=== PATIENT | female | born 1985 | race Caucasian/White ===

== ENCOUNTER → 2016-05-02 | Outpatient (CLI) | payer BC ==
[2016-05-02 13:38] LABS: ALBUMIN 3.9 GM/DL (3.2-5.2); ALBUMIN/GLOBULIN RATIO 1.22 (1.00-1.93); ALKALINE PHOSPHATASE 90 U/L (45-117); ALT/SGPT 59 U/L (12-78); ANION GAP 8 MEQ/L (8-16); AST/SGOT 20 U/L (15-37); BILIRUBIN,TOTAL 0.3 MG/DL (0.2-1.0); BLOOD UREA NITROGEN 8 MG/DL (7-18); CARBON DIOXIDE LEVEL 28 MEQ/L (21-32); CHLORIDE LEVEL 105 MEQ/L (98-107); CREATININE FOR GFR 0.61 MG/DL (0.55-1.02); GLOMERULAR FILTRATION RATE > 60.0 (>60); GLUCOSE, FASTING 120 MG/DL (70-105); POTASSIUM SERUM 4.6 MEQ/L (3.5-5.1); SODIUM LEVEL 141 MEQ/L (136-145); TOTAL PROTEIN 7.1 GM/DL (6.4-8.2)
== END ==
LOC: M SMT 08:18
PROVIDERS: ATTEND Family Medicine
DX: E11.9 Type 2 diabetes mellitus without complications (principal)

== ENCOUNTER → 2016-06-05 | Outpatient (CLI) | payer BC | LOC: M LAB 11:48 | PROVIDERS: ATTEND Advanced Practice Midwife | DX: O26.851 Spotting complicating pregnancy, first trimester (principal); Z3A.00 Weeks of gestation of pregnancy not specified ==

== ENCOUNTER → 2016-06-08 | Outpatient (CLI) | payer BC ==
[2016-06-08 14:47] LABS: BASO % 0.3 % (0.0-1.0); EOS # 0.1 K/mm3 (0.0-0.50); EOS % 0.8 % (0.0-3.0); LARGE UNSTAINED CELL # 0.1 K/mm3 (0.0-0.4); LARGE UNSTAINED CELL % 1.5 % (0.0-4.0); LYMPH % 31.9 % (24.0-44.0); MEAN CORPUSCULAR HEMOGLOBIN 28.3 pg (27.0-33.0); MEAN CORPUSCULAR HGB CONC 33.7 g/dl (32.0-36.5); MONO # 0.4 K/mm3 (0.0-0.8); MONO % 4.6 % (0.0-5.0); NEUTROPHILS # 5.5 K/mm3 (1.8-7.7); NEUTROPHILS % 60.9 % (36.0-66.0); PLATELET COUNT, AUTOMATED 265 k/mm3 (150-450); RED CELL DISTRIBUTION WIDTH 12.8 % (11.5-14.5)
[2016-06-08 15:00] LABS: HCG, SERUM QUANTITATIVE < 1.0 MIU/ML
[2016-06-09 10:16] LABS: HBsAg Prenatal NEGATIVE (NEGATIVE)
== END ==
LOC: M LAB 13:42
PROVIDERS: ATTEND Advanced Practice Midwife
DX: O26.851 Spotting complicating pregnancy, first trimester (principal); Z3A.00 Weeks of gestation of pregnancy not specified

== ENCOUNTER → 2016-06-20 | Outpatient (CLI) | payer BC ==
[2016-06-20 09:55] LABS: FREE T4 1.01 NG/DL (0.76-1.46)
== END ==
LOC: M LAB 08:48
PROVIDERS: ATTEND Family Medicine
DX: E55.9 Vitamin D deficiency, unspecified (principal); E66.09 Other obesity due to excess calories

== ENCOUNTER → 2016-09-12 | Outpatient (REF) | payer BC ==
[2016-09-12 13:51] LABS: ALBUMIN 3.9 GM/DL (3.2-5.2); ALKALINE PHOSPHATASE 73 U/L (45-117); ALT/SGPT 39 U/L (12-78); ANION GAP 7 MEQ/L (8-16); AST/SGOT 15 U/L (15-37); BILIRUBIN,TOTAL 0.2 MG/DL (0.2-1.0); BLOOD UREA NITROGEN 10 MG/DL (7-18); CALCIUM LEVEL 8.8 MG/DL (8.5-10.1); CARBON DIOXIDE LEVEL 26 MEQ/L (21-32); CHLORIDE LEVEL 105 MEQ/L (98-107); CREATININE FOR GFR 0.63 MG/DL (0.55-1.02); GLOMERULAR FILTRATION RATE > 60.0 (>60); GLUCOSE, FASTING 95 MG/DL (70-105); POTASSIUM SERUM 4.3 MEQ/L (3.5-5.1); SODIUM LEVEL 138 MEQ/L (136-145); TOTAL PROTEIN 6.9 GM/DL (6.4-8.2)
== END ==
LOC: M LAB REF 12:19
PROVIDERS: ATTEND Family Medicine
DX: M54.6 Pain in thoracic spine (principal); E11.9 Type 2 diabetes mellitus without complications; E55.9 Vitamin D deficiency, unspecified

== ENCOUNTER → 2016-11-17 | Outpatient (CLI) | payer BC ==
[2016-11-17 15:40] LABS: MAGNESIUM LEVEL 2.1 MG/DL (1.8-2.4)
== END ==
LOC: M SMT 10:26
PROVIDERS: ATTEND Family Medicine
DX: E55.9 Vitamin D deficiency, unspecified (principal); M79.1 Myalgia

== ENCOUNTER → 2016-11-17 | Outpatient (CLI) | payer BC ==
[2016-11-17 15:45] LABS: FOLLICLE STIMULATING HORMONE 2.9 mIU/mL; LUTEINIZING HORMONE 5.6 mIU/mL; PROGESTERONE 11.5 NG/ML
== END ==
LOC: M SMT 09:57
PROVIDERS: ATTEND Specialist
DX: N93.8 Other specified abnormal uterine and vaginal bleeding (principal)

== ENCOUNTER → 2017-01-23 | Outpatient (CLI) | payer BC | LOC: M LAB 13:17 | PROVIDERS: ATTEND Specialist | DX: O26.851 Spotting complicating pregnancy, first trimester (principal) ==

== ENCOUNTER → 2017-01-25 | Outpatient (CLI) | payer BC | LOC: M LAB 13:28 | PROVIDERS: ATTEND Specialist | DX: O26.851 Spotting complicating pregnancy, first trimester (principal); Z3A.00 Weeks of gestation of pregnancy not specified ==

== ENCOUNTER → 2017-03-05 | Outpatient (CLI) | payer BC ==
[2017-03-05 13:57] LABS: BASO % 0.2 % (0.0-1.0); EOS % 0.4 % (0.0-3.0); HEMATOCRIT 40.8 % (36.0-47.0); HEMOGLOBIN 13.8 g/dl (12.0-16.0); IMMATURE GRANULOCYTE % 0.3 % (0-0); LYMPH # 2.8 10^3/uL (1.5-4.5); LYMPH % 30.4 % (24.0-44.0); MEAN CORPUSCULAR HEMOGLOBIN 27.9 pg (27.0-33.0); MEAN CORPUSCULAR HGB CONC 33.8 g/dl (32.0-36.5); MEAN CORPUSCULAR VOLUME 82.6 fl (80.0-96.0); MONO # 0.6 10^3/uL (0.0-0.8); MONO % 6.6 % (0.0-5.0); NEUTROPHILS # 5.7 10^3/uL (1.8-7.7); NEUTROPHILS % 62.1 % (36.0-66.0); PLATELET COUNT, AUTOMATED 310 10^3/uL (150-450); RED BLOOD COUNT 4.94 10^6/uL (4.00-5.40); RED CELL DISTRIBUTION WIDTH 12.8 % (11.5-14.5); WHITE BLOOD COUNT 9.2 10^3/uL (4.0-10.0)
[2017-03-05 14:33] LABS: RUBELLA IgG QUALITATIVE IMMUNE (IMMUNE)
[2017-03-05 14:34] LABS: HBsAg Prenatal NEGATIVE (NEGATIVE)
[2017-03-05 15:02] LABS: HEPATITIS C VIRUS ABY INDEX 0.1 INDEX (<0.8)
[2017-03-05 15:03] LABS: HIV 1&2 SCREEN CENTAUR NEGATIVE (NEGATIVE)
[2017-03-05 15:07] LABS: ESTIMATED AVERAGE GLUCOSE 117 MG/DL (60-110); HEMOGLOBIN A1c 5.7 %
[2017-03-05 15:22] LABS: CHLAMYDIA DNA AMPLIFICATION NEGATIVE (NEGATIVE); GC DNA AMPLIFICATION NEGATIVE (NEGATIVE)
== END ==
LOC: M LAB 13:08
DX: Z3A.01 Less than 8 weeks gestation of pregnancy (principal)
CPT/HCPCS: 83036

== ENCOUNTER 2017-03-09 07:03 | Day surgery (SDC) | payer BC ==
[~2017-03-09 07:03] MED LIST: LIDOCAINE 1% MDV 20ML VIAL SQ
[2017-03-09] MEDS: LR 1,000 ML IV (08:10)
[2017-03-09] MEDS ORDERED: LIDOCAINE 1% MDV 20ML VIAL As Ordered (08:23)
[2017-03-09 08:25] LABS: HEMATOCRIT 43.1 % (36.0-47.0); HEMOGLOBIN 14.4 g/dl (12.0-16.0)
[2017-03-09 08:50] LABS: BEDSIDE GLUCOSE 120 MG/DL (70-105)
[2017-03-09] MEDS ORDERED: MIDAZOLAM INJ 2 MG/2 ML VIAL (J2250) As Ordered (09:28)
[2017-03-09] MEDS ORDERED: PROPOFOL 200 MG/20 ML VIAL As Ordered ×2 (09:28)
[2017-03-09] MEDS ORDERED: fentaNYL 100 MCG/2 ML INJECTION (J3010) As Ordered (09:28)
[2017-03-09] MEDS ORDERED: MEPERIDINE 50 MG/ML 1ML VIAL (J2175) As Ordered (09:28)
[2017-03-09] MEDS ORDERED: LIDOCAINE 2% INJ 100 MG/5 ML SDV (FOR ANES.) As Ordered (09:29)
[2017-03-09] MEDS ORDERED: dexameTHASONE 4 MG/ML 1ML VIAL (J1100) As Ordered (09:29)
[2017-03-09] MEDS ORDERED: ONDANSETRON 4MG/2ML VIAL (J2405) As Ordered (09:29)
[2017-03-09] MEDS ORDERED: KETOROLAC 60 MG/2 ML VIAL (J1885) As Ordered (09:29)
[2017-03-09] MEDS ORDERED: LR 1,000 ML IV ×2 (10:15)
[2017-03-09] MEDS ORDERED: ONDANSETRON 4MG/2ML VIAL (J2405) IV (10:15)
[2017-03-09] MEDS ORDERED: fentaNYL 100 MCG/2 ML INJECTION (J3010) IV (10:15)
[2017-03-09] MEDS ORDERED: KETOROLAC 30 MG/ML VIAL (J1885) IV (10:15)
[2017-03-09] MEDS ORDERED: MEPERIDINE INJ 25 MG/ML VIAL (J2175) IV (10:15)
[2017-03-09] MEDS: PERCOCET 5MG/325MG TAB PO (10:36)
== END 2017-03-09 11:15 | disposition home or self-care (01) ==
LOC: M SDC 07:03
DX: O02.1 Missed abortion (principal); E11.9 Type 2 diabetes mellitus without complications; F41.9 Anxiety disorder, unspecified; F32.9 Major depressive disorder, single episode, unspecified; M79.7 Fibromyalgia; Z79.84 Long term (current) use of oral hypoglycemic drugs
CPT/HCPCS: 59820

== ENCOUNTER → 2017-04-16 | Outpatient (CLI) | payer BC ==
[2017-04-18 14:14] LABS: PROTEIN C FUNCTIONAL ACTIVITY 143 % (73-180)
[2017-04-18 14:14] LABS: FACTOR II ACTIVITY 122 % (50-154); PROTEIN S FUNCTIONAL ACTIVITY 101 % (63-140)
== END ==
LOC: M LAB 13:16
DX: N96 Recurrent pregnancy loss (principal)

== ENCOUNTER → 2017-06-08 | Outpatient (CLI) | payer BC ==
[2017-06-08 14:49] LABS: HCG, SERUM QUANTITATIVE 961 MIU/ML
== END ==
LOC: M LAB 13:48
DX: N91.1 Secondary amenorrhea (principal)
CPT/HCPCS: 84702

== ENCOUNTER → 2017-07-25 | Outpatient (CLI) | payer BC | LOC: M LAB 15:10 | DX: Z36.89 Encounter for other specified antenatal screening (principal); Z3A.10 10 weeks gestation of pregnancy ==

== ENCOUNTER → 2017-07-25 | Outpatient (REF) | payer BC ==
[2017-07-26 11:30] LABS: BASO % 0.1 % (0.0-1.0); EOS % 0.2 % (0.0-3.0); HEMOGLOBIN 13.6 g/dl (12.0-15.5); IMMATURE GRANULOCYTE % 0.2 % (0-3.0); LYMPH # 2.6 10^3/uL (1.5-4.5); LYMPH % 28.4 % (24.0-44.0); MEAN CORPUSCULAR HEMOGLOBIN 28.5 pg (27.0-33.0); MEAN CORPUSCULAR VOLUME 83.7 fl (80.0-96.0); MONO # 0.7 10^3/uL (0.0-0.8); MONO % 7.3 % (0.0-5.0); NEUTROPHILS # 5.9 10^3/uL (1.8-7.7); NEUTROPHILS % 63.8 % (36.0-66.0); PLATELET COUNT, AUTOMATED 286 10^3/uL (150-450); RED BLOOD COUNT 4.78 10^6/uL (4.00-5.40); RED CELL DISTRIBUTION WIDTH 12.9 % (11.5-14.5); WHITE BLOOD COUNT 9.2 10^3/uL (4.0-10.0)
[2017-07-26 12:18] LABS: ESTIMATED AVERAGE GLUCOSE 105 MG/DL (60-110); HEMOGLOBIN A1c 5.3 %
[2017-07-26 14:10] LABS: CHLAMYDIA DNA AMPLIFICATION NEGATIVE (NEGATIVE); GC DNA AMPLIFICATION NEGATIVE (NEGATIVE)
[2017-07-27 11:54] LABS: RUBELLA IgG QUALITATIVE IMMUNE (IMMUNE)
[2017-07-27 11:58] LABS: HBsAg Prenatal NEGATIVE (NEGATIVE)
[2017-07-27 12:24] LABS: HIV 1&2 SCREEN CENTAUR NEGATIVE (NEGATIVE)
[2017-07-27 12:24] LABS: HEPATITIS C VIRUS ABY INDEX < 0.0 INDEX (<0.8)
== END ==
LOC: M LAB 11:12
DX: Z36.89 Encounter for other specified antenatal screening (principal); Z3A.10 10 weeks gestation of pregnancy
CPT/HCPCS: 83036

== ENCOUNTER → 2017-07-30 | Outpatient (CLI) | payer BC | LOC: M SMT 13:33 | DX: Z36.9 Encounter for antenatal screening, unspecified (principal) | CPT/HCPCS: 36415 ==

== ENCOUNTER → 2017-09-28 | Outpatient (CLI) | payer BC | LOC: M RAD 07:48 | DX: Z34.82 Encounter for supervision of other normal pregnancy, second trimester (principal); Z36.89 Encounter for other specified antenatal screening; Z3A.21 21 weeks gestation of pregnancy | CPT/HCPCS: 76811 ==

== ENCOUNTER → 2017-11-13 | Outpatient (CLI) | payer BC ==
[2017-11-13 14:11] LABS: BASO % 0.2 % (0.0-1.0); EOS % 0.4 % (0.0-3.0); HEMATOCRIT 34.3 % (36.0-47.0); HEMOGLOBIN 11.4 g/dl (12.0-15.5); IMMATURE GRANULOCYTE % 0.7 % (0-3.0); LYMPH # 1.6 10^3/uL (1.5-4.5); LYMPH % 17.1 % (24.0-44.0); MEAN CORPUSCULAR HGB CONC 33.2 g/dl (32.0-36.5); MEAN CORPUSCULAR VOLUME 87.3 fl (80.0-96.0); MONO # 0.6 10^3/uL (0.0-0.8); MONO % 6.2 % (0.0-5.0); NEUTROPHILS # 7.2 10^3/uL (1.8-7.7); NEUTROPHILS % 75.4 % (36.0-66.0); PLATELET COUNT, AUTOMATED 190 10^3/uL (150-450); RED BLOOD COUNT 3.93 10^6/uL (4.00-5.40); RED CELL DISTRIBUTION WIDTH 13.6 % (11.5-14.5); WHITE BLOOD COUNT 9.5 10^3/uL (4.0-10.0)
[2017-11-13 14:43] LABS: GLUCOSE CHALLENGE TEST 1 HOUR 166 MG/DL (LESS THAN 140)
== END ==
LOC: M SMT 08:26
DX: Z34.82 Encounter for supervision of other normal pregnancy, second trimester (principal); Z36.89 Encounter for other specified antenatal screening
CPT/HCPCS: 82950

== ENCOUNTER → 2018-01-08 | Outpatient (CLI) | payer BC | LOC: M RAD 16:53 | DX: O24.113 Pre-existing type 2 diabetes mellitus, in pregnancy, third trimester (principal); Z3A.35 35 weeks gestation of pregnancy | CPT/HCPCS: 76816 ==

== ENCOUNTER → 2018-01-11 | Outpatient (REF) | payer BC | LOC: M LAB REF 16:45 | DX: O24.113 Pre-existing type 2 diabetes mellitus, in pregnancy, third trimester (principal); Z3A.35 35 weeks gestation of pregnancy | CPT/HCPCS: 87081 ==

== ENCOUNTER 2018-01-25 07:13 | Inpatient (IN) | payer BC ==
[2018-01-25] MEDS: miSOPROStol 50 MCG 1/2 TAB (S0191) SL ×2 (08:16→12:33)
[2018-01-25 08:21] LABS: HEMATOCRIT 35.4 % (36.0-47.0); HEMOGLOBIN 11.6 g/dl (12.0-15.5); MEAN CORPUSCULAR HEMOGLOBIN 28.4 pg (27.0-33.0); MEAN CORPUSCULAR HGB CONC 32.8 g/dl (32.0-36.5); MEAN CORPUSCULAR VOLUME 86.6 fl (80.0-96.0); PLATELET COUNT, AUTOMATED 135 10^3/uL (150-450); RED BLOOD COUNT 4.09 10^6/uL (4.00-5.40); RED CELL DISTRIBUTION WIDTH 13.5 % (11.5-14.5); WHITE BLOOD COUNT 8.4 10^3/uL (4.0-10.0)
[2018-01-25 10:28] LABS: ALT/SGPT 18 U/L (12-78); AST/SGOT 13 U/L (7-37); BILIRUBIN,TOTAL 0.3 MG/DL (0.2-1.0); CREATININE FOR GFR 0.57 MG/DL (0.55-1.30); GLOMERULAR FILTRATION RATE > 60.0 (>60); LDH LACTATE DEHYDROGENASE 159 U/L (84-246); URIC ACID 4.1 MG/DL (2.6-6.0)
[2018-01-25] MEDS: DOCUSATE SODIUM 100 MG CAP PO (12:33)
[2018-01-25] MEDS ORDERED: FENTANYL 2MCG/ML ROPIVACAINE 0.2% IN 0.9% NACL 200ML IVBAG As Ordered (16:46)
[2018-01-25] MEDS ORDERED: LACTATED RINGER'S 1000 ML IV (18:15)
[2018-01-25] MEDS ORDERED: NALOXONE INJ 0.4 MG/1 ML VIAL (J2310) IV (18:15)
[2018-01-25] MEDS ORDERED: REFRIGERATOR IV KEYS XX (18:15)
[2018-01-25] MEDS ORDERED: EPIDURAL/PCA KEYS XX (18:15)
[2018-01-25] MEDS ORDERED: ePHEDrine SULFATE 25 MG/5 ML(5MG/ML) SYRINGE IV (18:15)
[2018-01-25] MEDS ORDERED: EPIDURAL COMMENT XX (18:15)
[2018-01-25] MEDS ORDERED: diphenhydrAMINE INJ 50MG/ML VIAL (J1200) IV (18:15)
[2018-01-25] MEDS: FENTANYL/ROPIVACAINE/NACL BAG 200 ML EPIDURAL (18:15)
[2018-01-25] MEDS: FAMOTIDINE 20 MG TAB PO (19:58)
[2018-01-25] MEDS ORDERED: OXYTOCIN DRIP 30 UNITS in APPROPRIATE DILUENT 1 EA IV (23:45)
[2018-01-26] MEDS: ONDANSETRON 4MG/2ML VIAL (J2405) IV (01:45)
[2018-01-26] MEDS: FENTANYL/ROPIVACAINE/NACL BAG 200 ML EPIDURAL (06:00)
[2018-01-26] MEDS ORDERED: LIDOCAINE 1% MDV INJ 50 ML VIAL As Ordered (07:41)
[2018-01-26 07:57] LABS: CORD GAS PCO2 A 45.9 mmHg; CORD GAS PH A 7.297 UNITS; CORD GAS PO2 A 38.6 mmHg
[2018-01-26 07:58] LABS: CORD GAS ABE A -4.7; CORD GAS HCO3 A 21.9 MEQ/L
[2018-01-26 08:00] LABS: CORD GAS O2 SAT A 80.4 %; CORD GAS PH V 7.282 UNITS; CORD GAS SBC A 20.2 MEQ/L; CORD GAS TCO2 A 23.3 MEQ/L
[2018-01-26 08:01] LABS: CORD GAS ABE V -7.1; CORD GAS HCO3 V 19.9 MEQ/L; CORD GAS O2 SAT V 80.5 %; CORD GAS PCO2 V 41.8 mmHg; CORD GAS PO2 V 38.6 mmHg; CORD GAS SBC V 18.5 MEQ/L; CORD GAS TCO2 V 20.6 MEQ/L
[2018-01-26] MEDS ORDERED: RHOGAM 300 MCG (1500 IU) INJ (J2790) IM (08:30)
[2018-01-26] MEDS: LIDOCAINE 1% MDV 20ML VIAL INFIL (08:30)
[2018-01-26] MEDS ORDERED: MEASLES,MUMPS,RUBELLA VACCINE INJ (MMR-II) (90707) SC (08:30)
[2018-01-26] MEDS ORDERED: ONDANSETRON 4MG/2ML VIAL (J2405) IV (08:30)
[2018-01-26] MEDS ORDERED: ACETAMINOPHEN 500 MG TAB PO (08:30)
[2018-01-26] MEDS ORDERED: METHYLERGONOVINE MALEATE 0.2 MG TAB PO (08:30)
[2018-01-26] MEDS: OXYTOCIN DRIP 30 UNITS in APPROPRIATE DILUENT 1 EA IV ×2 (08:45→09:16)
[2018-01-26] MEDS: PRENATAL VITAMINS CHEWABLE TABLET PO (09:00)
[2018-01-26] MEDS: PERCOCET 5MG/325MG TAB PO ×3 (09:29→17:25)
[2018-01-26] MEDS: IBUPROFEN 800 MG TAB PO ×2 (10:15→22:01)
[2018-01-26] MEDS: metFORMIN XR 500MG TAB *GLUCOPHAGE XR PO (17:24)
[2018-01-26] MEDS: DOCUSATE SODIUM 100 MG CAP PO (19:50)
[2018-01-26] MEDS: FAMOTIDINE 20 MG TAB PO (20:57)
[2018-01-26] MEDS: DIBUCAINE 1% OINTMENT 30GM TOP (20:59)
[2018-01-26] MEDS ORDERED: metFORMIN (GLUCOPHAGE) 1000 MG TABLET PO (21:00)
[2018-01-27] MEDS: PERCOCET 5MG/325MG TAB PO ×2 (05:01→11:24)
[2018-01-27] MEDS: ANUSOL HC CREAM 30GM TOP (09:21)
[2018-01-27] MEDS: DIBUCAINE 1% OINTMENT 30GM TOP (09:21)
[2018-01-27] MEDS: PRENATAL VITAMINS CHEWABLE TABLET PO (09:21)
[2018-01-27] MEDS: DOCUSATE SODIUM 100 MG CAP PO (09:22)
[2018-01-27] MEDS: IBUPROFEN 800 MG TAB PO (09:22)
== END 2018-01-27 11:25 | disposition home or self-care (01) | DRG 560 ==
LOC: M LDI 07:13 → M OBS 01-26 11:45
PROVIDERS: Specialist
PROC: 3E0DXGC Introduction of Other Therapeutic Substance into Mouth and Pharynx, External Approach (ICD-10-PCS; 2018-01-25)
PROC: 10D07Z3 Extraction of Products of Conception, Low Forceps, Via Natural or Artificial Opening (ICD-10-PCS; principal; 2018-01-26)
PROC: 0KQM0ZZ Repair Perineum Muscle, Open Approach (ICD-10-PCS; 2018-01-26)
DX: O24.12 Pre-existing type 2 diabetes mellitus, in childbirth (principal); O32.4XX0 Maternal care for high head at term, not applicable or unspecified; Z37.0 Single live birth; Z3A.37 37 weeks gestation of pregnancy; O66.0 Obstructed labor due to shoulder dystocia; O70.1 Second degree perineal laceration during delivery

== ENCOUNTER → 2018-11-27 | Outpatient (CLI) | payer BC ==
[~2018-11-27] MED LIST changes: +ALPR0.5T3 PO; +IBUP-1114 PO; -LIDOCAINE 1% MDV 20ML VIAL SQ; +MAGN200T PO; +METF-415 PO; +OXYC1TAB23 PO; +PERCOCET PO; +PREN1TAB11 PO; +VITA200038 PO; +VITA400C35 PO; +VITATAB11 PO; +XANA0.5T PO; +ZANT150T40 PO; +ZOFR4TAB14 SL
== END ==
LOC: M LAB 12:30
PROVIDERS: ATTEND Specialist
DX: N91.2 Amenorrhea, unspecified (principal)

== ENCOUNTER → 2018-11-29 | Outpatient (CLI) | payer BC | LOC: M LAB 10:30 | PROVIDERS: ATTEND Specialist | DX: N91.2 Amenorrhea, unspecified (principal) ==

== ENCOUNTER → 2018-12-17 | Outpatient (CLI) | payer BC ==
[2018-12-17 10:27] LABS: BASO % 0.2 % (0.0-1.0); EOS % 0.2 % (0.0-3.0); HEMATOCRIT 38.8 % (36.0-47.0); HEMOGLOBIN 13.1 g/dl (12.0-15.5); LYMPH # 2.3 10^3/uL (1.5-5.0); MEAN CORPUSCULAR HEMOGLOBIN 28.4 pg (27.0-33.0); MEAN CORPUSCULAR HGB CONC 33.8 g/dl (32.0-36.5); MEAN CORPUSCULAR VOLUME 84.2 fl (80.0-96.0); MONO # 0.6 10^3/uL (0.0-0.8); MONO % 6.4 % (0.0-5.0); PLATELET COUNT, AUTOMATED 314 10^3/uL (150-450); RED BLOOD COUNT 4.61 10^6/uL (4.00-5.40)
[2018-12-17 11:58] LABS: HEMOGLOBIN A1c 5.4 %
[2018-12-17 12:33] LABS: CHLAMYDIA DNA AMPLIFICATION NEGATIVE (NEGATIVE); GC DNA AMPLIFICATION NEGATIVE (NEGATIVE)
[2018-12-18 10:18] LABS: HEPATITIS C VIRUS ABY INDEX 0.1 INDEX (<0.8); HIV 1&2 SCREEN CENTAUR NEGATIVE (NEGATIVE); RUBELLA IgG QUALITATIVE IMMUNE (IMMUNE)
== END ==
LOC: M LAB 09:26
PROVIDERS: ATTEND Specialist
DX: Z34.81 Encounter for supervision of other normal pregnancy, first trimester (principal); Z3A.01 Less than 8 weeks gestation of pregnancy

== ENCOUNTER → 2019-01-13 | Outpatient (CLI) | payer BC | LOC: M SMT 08:49 | PROVIDERS: ATTEND Specialist | DX: Z13.79 Encounter for other screening for genetic and chromosomal anomalies (principal) ==

== ENCOUNTER → 2019-03-12 | Outpatient (CLI) | payer BC ==
--- NOTE | 2019-03-13 02:27 | REP ---
Clinical: Anatomical evaluation. Comparison: None. Findings: Examination demonstrates a single live intrauterine in breech presentation. motion is identified by technologist. Placenta is noted anterior and grade zero without evidence for placenta previa or abruption. Amniotic fluid volume is normal. Cervix measures 4.2 cm in length and appears closed. No evidence for nuchal cord. Gestational age by LMP 20 weeks 3 days with MAGAN 07/27/2019 . Gestational age by current measurements 20 weeks 4 days with MAGAN 07/26/2019 . FHR equals 147 beats per minute. BPD 4.7 cm 20 weeks 2-day HC 18.1 cm 20 weeks 3 days AC 14.9 cm 20 weeks 1 day FL 3.4 cm 20 weeks 4 days HL 3.3 cm 21 weeks 2 days HC/AC ratio 1.22 Estimated weight 347 grams ( 44th percentile). Anatomical assessment demonstrates normal structures including cranium, choroid plexus, cavum, cerebellum/posterior fossa, facial features, lungs, four-chamber heart/ventricular outflow tracts, diaphragm, stomach, cord insertion/three-vessel cord, kidneys/bladder, spine, and extremities. Impression: Single live intrauterine in breech presentation demonstrating appropriate interval growth. Anatomical assessment is complete and normal. No gross abnormalities are identified. Electronically Signed by Ben العلي MD 03/13/2019 02:19 A
== END ==
LOC: M RAD 10:01
PROVIDERS: ATTEND Specialist
DX: O32.1XX0 Maternal care for breech presentation, not applicable or unspecified (principal); Z36.89 Encounter for other specified antenatal screening; Z3A.20 20 weeks gestation of pregnancy

== ENCOUNTER → 2019-05-08 | Outpatient (CLI) | payer BC ==
[2019-05-08 11:50] LABS: HEMATOCRIT 33.5 % (36.0-47.0); HEMOGLOBIN 11.7 g/dl (12.0-15.5); MEAN CORPUSCULAR HEMOGLOBIN 30.9 pg (27.0-33.0); MEAN CORPUSCULAR HGB CONC 34.9 g/dl (32.0-36.5); MEAN CORPUSCULAR VOLUME 88.4 fl (80.0-96.0); PLATELET COUNT, AUTOMATED 202 10^3/uL (150-450); RED BLOOD COUNT 3.79 10^6/uL (4.00-5.40); WHITE BLOOD COUNT 10.1 10^3/uL (4.0-10.0)
[2019-05-08 12:28] LABS: HEMOGLOBIN A1c 5.6 %
== END ==
LOC: M LAB 11:20
PROVIDERS: ATTEND Specialist
DX: Z34.92 Encounter for supervision of normal pregnancy, unspecified, second trimester (principal); Z36.89 Encounter for other specified antenatal screening

== ENCOUNTER → 2019-06-18 | Outpatient (CLI) | payer BC ==
--- NOTE | 2019-06-25 05:37 | REP ---
Clinical: Anatomical evaluation. Comparison: 03/12/2019 . Findings: Examination demonstrates a single live intrauterine in cephalic presentation. motion is identified by technologist. Placenta is noted anterior and grade II without evidence for placenta previa or abruption. Amniotic fluid volume is normal. Cervix measures 2.9 cm and appears closed. No evidence for nuchal cord. Gestational age by LMP 34 weeks 4 days with MAGAN 07/27/2019 . Gestational age by current measurements 35 weeks 0 days with MAGAN 07/23/2019 . FHR equals 156 beats per minute. BPD 8.4 cm 33 weeks 6 days HC 31.3 cm 35 weeks 1 day AC 32.7 cm 36 weeks 5 days FL 7.0 cm 35 weeks 5 days HL 6.5 cm 37 weeks 4 days HC/AC ratio 0.96 Estimated weight 2799 grams ( 83rd percentile). The Amniotic fluid index 16.2 cm No gross abnormalities are identified. Impression: Single live advanced gestation in cephalic presentation demonstrating appropriate interval growth. No obvious gross abnormalities are identified.
== END ==
LOC: M WHC 14:10
PROVIDERS: ATTEND Specialist
DX: O24.113 Pre-existing type 2 diabetes mellitus, in pregnancy, third trimester (principal); Z3A.34 34 weeks gestation of pregnancy

== ENCOUNTER → 2019-06-27 | Outpatient (REF) | payer BC ==
[~2019-06-27] MED LIST changes: +APAP325T4 PO; +COLA100C5 PO; +OMEP1CAP73 PO
== END ==
LOC: M SFHCWAGY 16:37
PROVIDERS: ATTEND Specialist
DX: O24.113 Pre-existing type 2 diabetes mellitus, in pregnancy, third trimester (principal); Z3A.00 Weeks of gestation of pregnancy not specified

== ENCOUNTER → 2019-07-08 | Outpatient (CLI) | payer BC ==
[~2019-07-08] MED LIST changes: +DOCU100C16 PO; +IBUP80TA PO; +INSUNSD SC; +INSURSD SC; +MAPA500T2 PO; +METF10004; +OMEP-218; +ONDA4TAB6 PO; +PRENTAB9 PO
== END ==
LOC: M LABSMTC 10:58
PROVIDERS: ATTEND Anesthesiology
DX: Z01.818 Encounter for other preprocedural examination (principal); Z11.59 Encounter for screening for other viral diseases
CPT/HCPCS: C9803; U0003

== ENCOUNTER 2019-07-11 05:36 | Inpatient (IN) | payer BC ==
[2019-07-11] VITALS (7 sets, daily range): BP systolic 105–127; BP diastolic 60–78
[~2019-07-11] VITALS: Ht 157.5 cm; Wt 86.1 kg
[~2019-07-11 05:36] MED LIST changes: -DOCU100C16 PO; -IBUP80TA PO; -INSUNSD SC; -INSURSD SC; -MAPA500T2 PO; -METF10004; -OMEP-218; -ONDA4TAB6 PO; -PRENTAB9 PO
[2019-07-11] MEDS ORDERED: LACTATED RINGER'S 1000 ML IV STA (06:21)
[2019-07-11] MEDS ORDERED: LR 1,000 ML IV SCH ×3 (06:21→10:00)
[2019-07-11 06:41] LABS: HEMATOCRIT 30.4 % (36.0-47.0); HEMOGLOBIN 9.9 g/dl (12.0-15.5); MEAN CORPUSCULAR HEMOGLOBIN 27.1 pg (27.0-33.0); MEAN CORPUSCULAR HGB CONC 32.6 g/dl (32.0-36.5); MEAN CORPUSCULAR VOLUME 83.3 fl (80.0-96.0); PLATELET COUNT, AUTOMATED 187 10^3/uL (150-450); RED BLOOD COUNT 3.65 10^6/uL (4.00-5.40); WHITE BLOOD COUNT 8.2 10^3/uL (4.0-10.0)
[2019-07-11] MEDS ORDERED: ceFAZolin SOD 2 GM in IV 1 EA IV ONE (06:45)
[2019-07-11] MEDS ORDERED: BICITRA 30ML SOLN UDC PO ONE (06:45)
[2019-07-11] MEDS ORDERED: dexameTHASONE 4 MG/ML 1ML VIAL (J1100 PER 1MG) As Ordered ONE (07:11)
[2019-07-11] MEDS ORDERED: KETOROLAC 60 MG/2 ML VIAL As Ordered ONE (07:11)
[2019-07-11] MEDS ORDERED: OXYTOCIN INJ 10 UNITS/ML VIAL (J2590) As Ordered ONE (07:11)
[2019-07-11] MEDS ORDERED: ONDANSETRON 4MG/2ML VIAL As Ordered ONE (07:11)
[2019-07-11] MEDS ORDERED: fentaNYL 100 MCG/2 ML INJECTION (J3010) As Ordered ONE (07:12)
[2019-07-11] MEDS ORDERED: MORPHINE PRES-FREE INJ 10 MG/10 ML VIAL (J2274) As Ordered ONE (07:12)
[2019-07-11] MEDS ORDERED: PHENYLephrine HCL 500 MCG/5 ML (100MCG/ML) SYRINGE (J2370) As Ordered ONE (08:24)
[2019-07-11] MEDS ORDERED: INSURSD SC ×2 (08:56)
[2019-07-11] MEDS ORDERED: INSUNSD SC ×2 (08:56)
[2019-07-11] MEDS: PRENATAL VITAMINS CHEWABLE TABLET PO SCH (09:00)
[2019-07-11] MEDS ORDERED: ACETAMINOPHEN 1000MG 100ML IV BTL (OFIRMEV) (J0131 PER 10MG) As Ordered ONE (09:13)
[2019-07-11] MEDS ORDERED: METF10004 (09:18)
[2019-07-11] MEDS ORDERED: OMEP-218 (09:18)
[2019-07-11] MEDS ORDERED: MAPA500T2 PO (09:19)
[2019-07-11] MEDS ORDERED: PRENTAB9 PO (09:20)
[2019-07-11] MEDS ORDERED: OXYTOCIN DRIP 30 UNITS in IV 1 EA IV SCH (09:39)
[2019-07-11] MEDS ORDERED: ONDANSETRON 4MG/2ML VIAL IV PRN ×2 (09:45→10:00)
[2019-07-11] MEDS ORDERED: DOCUSATE SODIUM 100 MG CAP PO PRN (09:45)
[2019-07-11] MEDS ORDERED: miSOPROStol 200 MCG TAB (S0191) PR ONE (09:45)
[2019-07-11] MEDS ORDERED: RHOGAM 300 MCG (1500 IU) INJ (J2790) IM SCH (09:45)
[2019-07-11] MEDS ORDERED: MEASLES,MUMPS,RUBELLA VACCINE INJ (MMR-II) (90707) SC SCH (09:45)
[2019-07-11] MEDS ORDERED: OXYTOCIN 30 UNITS IN 0.9% NaCl 500ML IV BAG (J2590) As Ordered ONE (09:49)
[2019-07-11] MEDS ORDERED: fentaNYL 100 MCG/2 ML INJECTION (J3010) IV PRN (10:00)
[2019-07-11] MEDS ORDERED: PERCOCET 5MG/325MG TAB PO PRN (10:00)
[2019-07-11] MEDS: oxyCODONE 5MG TAB PO PRN (11:36)
[2019-07-11] MEDS: diphenhydrAMINE 50MG/ML VIAL (J1200) IV PRN ×2 (11:37→21:33)
[2019-07-11 12:10] LABS: HEMATOCRIT 28.4 % (36.0-47.0); HEMOGLOBIN 9.5 g/dl (12.0-15.5); MEAN CORPUSCULAR HEMOGLOBIN 28.3 pg (27.0-33.0); MEAN CORPUSCULAR HGB CONC 33.5 g/dl (32.0-36.5); MEAN CORPUSCULAR VOLUME 84.5 fl (80.0-96.0); PLATELET COUNT, AUTOMATED 159 10^3/uL (150-450); RED BLOOD COUNT 3.36 10^6/uL (4.00-5.40); WHITE BLOOD COUNT 12.8 10^3/uL (4.0-10.0)
[2019-07-11] MEDS: OMEPRAZOLE 20 MG CAP PO SCH (12:10)
[2019-07-11 12:21] LABS: INR 1.06; PROTHROMBIN TIME 13.5 SECONDS (11.8-14.0)
[2019-07-11 12:22] LABS: PARTIAL THROMBOPLASTIN TIME 25.4 SECONDS (25.0-38.4)
[2019-07-11] MEDS: KETOROLAC 30 MG/ML 1ML VIAL IV SCH ×2 (15:23→21:32)
[2019-07-11] MEDS: metFORMIN (GLUCOPHAGE) 1000 MG TABLET PO SCH (18:16)
[2019-07-12 02:00] VITALS: BP 108/56
[2019-07-12] MEDS: KETOROLAC 30 MG/ML 1ML VIAL IV SCH (03:38)
[2019-07-12 06:00] VITALS: BP 109/63
[2019-07-12 07:06] LABS: HEMATOCRIT 26.3 % (36.0-47.0); HEMOGLOBIN 8.4 g/dl (12.0-15.5); MEAN CORPUSCULAR HEMOGLOBIN 27.5 pg (27.0-33.0); MEAN CORPUSCULAR HGB CONC 31.9 g/dl (32.0-36.5); MEAN CORPUSCULAR VOLUME 86.2 fl (80.0-96.0); PLATELET COUNT, AUTOMATED 160 10^3/uL (150-450); RED BLOOD COUNT 3.05 10^6/uL (4.00-5.40); WHITE BLOOD COUNT 11.6 10^3/uL (4.0-10.0)
--- NOTE | 2019-07-12 07:23 | IPNPDOC ---
Text Note Date of Service The patient was seen on 07/12/19. NOTE PO #1 Feels well. Adequate pain management. OOB independently without further lightheadedness. Due to void. Denies flatus. VSS, afebrile, normotensive. H/H stable Alert, oriented Breasts soft, nipples intact Fundus firm, NT Dressing intact Lochia rubra scant without odor PO #1, PPH Routine precautions. Enc rest alternate with OOB activity. Consider discharge in am VS,Fishbone, I+O VS, Fishbone, I+O Laboratory Tests 07/11/19 11:49 07/12/19 06:26 Vital Signs Date Time Temp Pulse Resp B/P (MAP) Pulse Ox O2 Delivery O2 Flow Rate FiO2 07/12/19 06:00 98.1 87 17 109/63 (78) 97 Room Air I&O- Last 24 Hours up to 6 AM 07/12/19 06:00 Intake Total 5525 ml Output Total 4750 ml Balance 775 ml Annie Esparza CNM July 12, 2019 07:23
[2019-07-12] MEDS: PRENATAL VITAMINS CHEWABLE TABLET PO SCH (07:46)
[2019-07-12] MEDS: metFORMIN (GLUCOPHAGE) 1000 MG TABLET PO SCH ×2 (07:46→18:04)
[2019-07-12] MEDS: oxyCODONE 5MG TAB PO PRN ×3 (07:47→20:43)
[2019-07-12] MEDS: OMEPRAZOLE 20 MG CAP PO SCH (08:43)
[2019-07-12] MEDS: DOCUSATE SODIUM 100 MG CAP PO SCH ×2 (08:43→20:43)
[2019-07-12] MEDS: ANUSOL HC CREAM 30GM TOP SCH ×2 (08:43→20:44)
[2019-07-12] MEDS: SIMETHICONE 80 MG CHEW TAB PO PRN ×3 (08:45→20:43)
[2019-07-12 10:05] VITALS: BP 111/68
[2019-07-12] MEDS: IBUPROFEN 800 MG TAB PO SCH ×2 (10:53→18:05)
[2019-07-12] MEDS ORDERED: OXYC1TAB23 PO (12:30)
[2019-07-12] MEDS ORDERED: IBUP80TA PO (12:31)
[2019-07-12 14:50] VITALS: BP 125/74
[2019-07-12 17:52] VITALS: BP 115/58
[2019-07-13 02:00] VITALS: BP 119/79
[2019-07-13] MEDS: IBUPROFEN 800 MG TAB PO SCH (02:38)
[2019-07-13] MEDS: SIMETHICONE 80 MG CHEW TAB PO PRN (02:39)
[2019-07-13] MEDS: oxyCODONE 5MG TAB PO PRN ×2 (02:39→08:44)
[2019-07-13 06:00] VITALS: BP 124/83
[2019-07-13] MEDS: OMEPRAZOLE 20 MG CAP PO SCH (08:43)
[2019-07-13] MEDS: DOCUSATE SODIUM 100 MG CAP PO SCH (08:43)
[2019-07-13] MEDS: metFORMIN (GLUCOPHAGE) 1000 MG TABLET PO SCH (08:43)
[2019-07-13] MEDS: PRENATAL VITAMINS CHEWABLE TABLET PO SCH (08:43)
[2019-07-13] MEDS: ANUSOL HC CREAM 30GM TOP SCH (09:00)
[2019-07-13] MEDS ORDERED: DOCU100C16 PO (09:10)
[2019-07-13] MEDS ORDERED: ONDA4TAB6 PO (09:10)
--- NOTE | 2019-07-15 14:27 | RO ---
DATE OF PROCEDURE: 07/11/2019 PREPROCEDURE DIAGNOSIS: 37 and 6/7 weeks gestation, type 2 diabetes on metformin, pelvic floor damage with urinary incontinence from prior delivery, history of shoulder dystocia with prior delivery. POSTPROCEDURE DIAGNOSIS: 37 and 6/7 weeks gestation, type 2 diabetes on metformin, pelvic floor damage with urinary incontinence from prior delivery, history of shoulder dystocia with prior delivery. PROCEDURE: Primary low transverse section. SURGEON: Shaan Bardales MD TALENT MANAGEMENT SPECIALIST: Pia Reyes MD ANESTHESIA: Spinal. ESTIMATED BLOOD LOSS: 1200 mL. URINE OUTPUT: 150 mL. IV FLUIDS: 3200 mL lactated Ringers, 600 mL colloid (2 units packed red blood cells). FINDINGS: 8 pound and 12 ounce, 3960 grams female , Apgars 9 and 9, left occiput transverse position, nuchal cord times one. Normal uterus, fallopian tubes and ovaries. Uterus with extensive sinuses and varicosities in the lower uterine segment and posterior uterus. DESCRIPTION OF PROCEDURE: The patient was taken to the operating room where spinal anesthesia was induced. She was prepped and draped in sterile fashion in the supine position. A Casillas catheter was placed. A Pfannenstiel skin incision was made with the scalpel and carried through to the fascia. The fascia was nicked and extended. The fascia was dissected off the rectus muscles. The peritoneal cavity was entered. The bladder flap was created. A Mobius retractor was placed. A curvilinear incision was made in the lower uterine segment. Immediately, a large sinus began to bleed. The uterine cavity was entered. The was delivered from the vertex position without difficulty. The cord was doubly clamped and cut. The infant was handed off to the awaiting nurses. The placenta was expressed. Ring forceps were placed on the bleeding sinuses to minimize bleeding. The uterus was closed with #0 Vicryl in a running locked fashion. A second imbricating layer of #0 Vicryl was placed. There was still noted to be bleeding from sinuses inferior to the incision on the patient's left as well as the midline. There was also varicosities in the posterior uterus that started to bleed just from manipulation of the uterus. This was noted upon exteriorization of the uterus. Multiple [id number] sutures were placed on bleeding sinuses. The posterior uterine fundal sinuses on the right were managed by just holding pressure on them. The sinuses in the front of the uterus were noted to be extremely thin walled and would bleed very easily. The decision was made to hold pressure on the uterus while plans were made for transfusion. Two units of packed red cells were transfused rapidly. The patient remained stable throughout the procedure. Eventually, the bleeding stopped. The uterus was internalized. Ryan was placed over the incisions. The peritoneum was closed with #2-0 Vicryl in a running fashion. The fascia was closed with #0 Vicryl. The deep layer was irrigated and skin was closed with #4-0 Monocryl subcuticular sutures. 800 mcg of Cytotec was placed per rectum to ensure the uterus stayed firm. Sponge, instrument and needle counts were correct. Pia Reyes MD, assisted throughout the entire procedure from beginning to end. He was indispensable with the successful performance of the procedure. He helped create each layer of the incision. He helped deliver the fetus and close all layers. He helped manage the hemorrhage that occurred.
== END 2019-07-13 10:45 | disposition home or self-care (01) | DRG 540 ==
LOC: M LDI 05:36 → M OBS 10:59
PROVIDERS: ADMIT Specialist; ATTEND Specialist
PROC: 30233N1 Transfusion of Nonautologous Red Blood Cells into Peripheral Vein, Percutaneous Approach (ICD-10-PCS; 2019-07-11)
PROC: 10D00Z1 Extraction of Products of Conception, Low, Open Approach (ICD-10-PCS; principal; 2019-07-11 07:30)
DX: O72.1 Other immediate postpartum hemorrhage (principal); Z37.0 Single live birth; Z3A.37 37 weeks gestation of pregnancy

== ENCOUNTER → 2020-08-05 | Outpatient (CLI) | payer BC ==
[~2020-08-05] MED LIST changes: +DOCU100C16 PO; +IBUP80TA PO; +INSUNSD SC; +INSURSD SC; +MAPA500T2 PO; +METF10004; +OMEP-218; +ONDA4TAB6 PO; +PRENTAB9 PO
[2020-08-05 11:59] LABS: BASO % 0.3 % (0.0-1.0); EOS # 0.1 10^3/uL (0.0-0.5); EOS % 0.9 % (0.0-3.0); HEMATOCRIT 39.4 % (36.0-47.0); HEMOGLOBIN 12.4 g/dl (12.0-15.5); LYMPH # 1.8 10^3/uL (1.5-5.0); LYMPH % 27.3 % (24.0-44.0); MEAN CORPUSCULAR HEMOGLOBIN 27.6 pg (27.0-33.0); MEAN CORPUSCULAR HGB CONC 31.5 g/dl (32.0-36.5); MEAN CORPUSCULAR VOLUME 87.6 fl (80.0-96.0); MONO # 0.5 10^3/uL (0.0-0.8); MONO % 7.4 % (2.0-8.0); NEUTROPHILS # 4.3 10^3/uL (1.5-8.5); NEUTROPHILS % 63.8 % (36.0-66.0); PLATELET COUNT, AUTOMATED 258 10^3/uL (150-450); WHITE BLOOD COUNT 6.7 10^3/uL (4.0-10.0)
[2020-08-05 12:48] LABS: ALT/SGPT 17 U/L (12-78); BILIRUBIN,TOTAL 0.4 MG/DL (0.2-1.0); BLOOD UREA NITROGEN 14 MG/DL (7-18); CALCIUM LEVEL 8.8 MG/DL (8.5-10.1); CARBON DIOXIDE LEVEL 26 MEQ/L (21-32); CHLORIDE LEVEL 107 MEQ/L (98-107); CREATININE FOR GFR 0.55 MG/DL (0.55-1.30); GLOMERULAR FILTRATION RATE > 60.0 (>60); GLUCOSE, FASTING 82 MG/DL (70-100); POTASSIUM SERUM 4.3 MEQ/L (3.5-5.1); SODIUM LEVEL 141 MEQ/L (136-145); TOTAL 25(OH) VITAMIN D 18.8 NG/ML (30.0-100.0); TOTAL PROTEIN 7.1 GM/DL (6.4-8.2)
[2020-08-05 13:12] LABS: MALB URINE SIEMENS 19.1 MG/L
[2020-08-05 16:20] LABS: HEMOGLOBIN A1c 5.3 %
== END ==
LOC: M LAB 10:49
PROVIDERS: ATTEND Family Medicine
DX: E11.9 Type 2 diabetes mellitus without complications (principal)

== ENCOUNTER → 2020-11-23 | Outpatient (REF) | payer BC | LOC: M SFHCWAGY 12:51 | PROVIDERS: ATTEND Specialist | DX: Z01.419 Encounter for gynecological examination (general) (routine) without abnormal findings (principal) ==

== ENCOUNTER → 2021-10-10 | Outpatient (CLI) | payer BC ==
[~2021-10-10] MED LIST changes: +OMEP-173; -OMEP-218
[2021-10-10 12:47] LABS: BASO % 0.4 % (0.0-1.0); EOS # 0.1 10^3/uL (0.0-0.5); EOS % 1.1 % (0.0-3.0); HEMATOCRIT 38.2 % (36.0-47.0); HEMOGLOBIN 12.4 g/dl (12.0-15.5); LYMPH # 1.6 10^3/uL (1.5-5.0); LYMPH % 27.9 % (24.0-44.0); MEAN CORPUSCULAR HEMOGLOBIN 28.5 pg (27.0-33.0); MEAN CORPUSCULAR HGB CONC 32.5 g/dl (32.0-36.5); MEAN CORPUSCULAR VOLUME 87.8 fl (80.0-96.0); MONO # 0.5 10^3/uL (0.0-0.8); MONO % 8.8 % (2.0-8.0); NEUTROPHILS # 3.5 10^3/uL (1.5-8.5); NEUTROPHILS % 61.6 % (36.0-66.0); PLATELET COUNT, AUTOMATED 239 10^3/uL (150-450); RED BLOOD COUNT 4.35 10^6/uL (4.00-5.40); WHITE BLOOD COUNT 5.7 10^3/uL (4.0-10.0)
[2021-10-10 13:42] LABS: ALBUMIN 3.8 GM/DL (3.2-5.2); ALT/SGPT 14 U/L (12-78); BILIRUBIN,TOTAL 0.4 MG/DL (0.2-1.0); BLOOD UREA NITROGEN 11 MG/DL (7-18); CALCIUM LEVEL 8.7 MG/DL (8.5-10.1); CARBON DIOXIDE LEVEL 30 MEQ/L (21-32); CHLORIDE LEVEL 109 MEQ/L (98-107); CHOLESTEROL LEVEL 145 MG/DL (<200); CHOLESTEROL RISK RATIO 2.071 (<5); CREATININE FOR GFR 0.58 MG/DL (0.55-1.30); GLOMERULAR FILTRATION RATE > 60.0 (>60); GLUCOSE, FASTING 87 MG/DL (70-100); HDL CHOLESTEROL 70 MG/DL (>40); LDL CHOLESTEROL 66 MG/DL (<100); NON-HDL-C 75 MG/DL; POTASSIUM SERUM 4.7 MEQ/L (3.5-5.1); SODIUM LEVEL 141 MEQ/L (136-145); TOTAL PROTEIN 6.6 GM/DL (6.4-8.2); TRIGLYCERIDES LEVEL 46 MG/DL (<150)
[2021-10-10 14:25] LABS: TOTAL 25(OH) VITAMIN D 25.9 NG/ML (30.0-100.0)
[2021-10-10 16:11] LABS: HEMOGLOBIN A1c 5.3 %
== END ==
LOC: M PLALAB 09:55
PROVIDERS: ATTEND Family Medicine
DX: E55.9 Vitamin D deficiency, unspecified (principal); E11.9 Type 2 diabetes mellitus without complications

== ENCOUNTER → 2021-10-11 | Outpatient (REF) | payer BC ==
[2021-10-11 18:51] LABS: CREATININE, URINE 14.3 MG/DL; MALB URINE SIEMENS < 5.0 MG/L; MAU/CREAT RATIO 34.9 MCG/MG (0.0-30.0)
== END ==
LOC: M LAB REF 17:05
PROVIDERS: ATTEND Family Medicine
DX: E11.9 Type 2 diabetes mellitus without complications (principal)

== ENCOUNTER → 2022-01-23 | Outpatient (CLI) | payer BC | LOC: M LABSMTC 09:56 | DX: Z01.812 Encounter for preprocedural laboratory examination (principal); Z20.822 Contact with and (suspected) exposure to COVID-19 ==

== ENCOUNTER → 2022-10-10 | Outpatient (CLI) | payer BC ==
[2022-10-10 12:07] LABS: BASO % 0.3 % (0.0-1.0); EOS # 0.1 10^3/uL (0.0-0.5); EOS % 0.7 % (0.0-3.0); HEMATOCRIT 38.8 % (36.0-47.0); HEMOGLOBIN 12.1 g/dl (12.0-15.5); LYMPH # 2.2 10^3/uL (1.5-5.0); LYMPH % 31.1 % (24.0-44.0); MEAN CORPUSCULAR HEMOGLOBIN 26.5 pg (27.0-33.0); MEAN CORPUSCULAR HGB CONC 31.2 g/dl (32.0-36.5); MEAN CORPUSCULAR VOLUME 85.1 fl (80.0-96.0); MONO # 0.5 10^3/uL (0.0-0.8); MONO % 6.7 % (2.0-8.0); NEUTROPHILS # 4.2 10^3/uL (1.5-8.5); NEUTROPHILS % 60.9 % (36.0-66.0); PLATELET COUNT, AUTOMATED 242 10^3/uL (150-450); RED BLOOD COUNT 4.56 10^6/uL (4.00-5.40); WHITE BLOOD COUNT 6.9 10^3/uL (4.0-10.0)
[2022-10-10 12:24] LABS: HEMOGLOBIN A1c 6.2 % (4.0-6.0)
[2022-10-10 12:31] LABS: CREATININE, URINE 149.7 MG/DL; MAU/CREAT RATIO 3.3 MCG/MG (0.0-30.0)
[2022-10-10 12:34] LABS: THYROID STIMULATING HORMONE 0.672 uIU/ML (0.55-4.78)
[2022-10-10 12:35] LABS: ALBUMIN 3.9 G/DL (3.2-5.2); ALKALINE PHOSPHATASE 61 U/L (46-116); ALT/SGPT < 9 U/L (7.0-40); AST/SGOT < 8 U/L (<34); BILIRUBIN,TOTAL 0.3 MG/DL (0.3-1.2); BLOOD UREA NITROGEN 10 MG/DL (9-23); CARBON DIOXIDE LEVEL 28 MMOL/L (20-31); CHLORIDE LEVEL 106 MMOL/L (98-107); CREATININE FOR GFR 0.52 MG/DL (0.55-1.30); GLOMERULAR FILTRATION RATE > 60.0 (>60); GLUCOSE, FASTING 107 MG/DL (60-100); POTASSIUM SERUM 4.4 MMOL/L (3.5-5.1); SODIUM LEVEL 141 MMOL/L (136-145); TOTAL PROTEIN 6.5 G/DL (5.7-8.2)
== END ==
LOC: M WUC 09:51
PROVIDERS: ATTEND Family Medicine
DX: E11.9 Type 2 diabetes mellitus without complications (principal)

== ENCOUNTER → 2022-10-11 | Outpatient (REF) | payer BC | LOC: M SFHCWAGY 17:54 | PROVIDERS: ATTEND Specialist | DX: Z01.419 Encounter for gynecological examination (general) (routine) without abnormal findings (principal) | CPT/HCPCS: 87624; G0123 ==

== ENCOUNTER → 2022-11-15 | Outpatient (CLI) | payer BC | LOC: M WHC 09:32 | PROVIDERS: ATTEND Specialist | DX: N83.201 Unspecified ovarian cyst, right side (principal) ==

== ENCOUNTER → 2023-04-25 | Outpatient (CLI) | payer BC ==
[~2023-04-25] MED LIST changes: +INSU100V19 SC; -INSURSD SC
[2023-04-25 14:08] LABS: BASO % 0.4 % (0.0-1.0); EOS # 0.1 10^3/uL (0.0-0.5); EOS % 0.6 % (0.0-3.0); HEMATOCRIT 37.1 % (36.0-47.0); HEMOGLOBIN 11.7 g/dl (12.0-15.5); LYMPH # 2.1 10^3/uL (1.5-5.0); LYMPH % 27.2 % (24.0-44.0); MEAN CORPUSCULAR HEMOGLOBIN 26.4 pg (27.0-33.0); MEAN CORPUSCULAR HGB CONC 31.5 g/dl (32.0-36.5); MEAN CORPUSCULAR VOLUME 83.7 fl (80.0-96.0); MONO # 0.6 10^3/uL (0.0-0.8); MONO % 7.6 % (2.0-8.0); NEUTROPHILS % 63.9 % (36.0-66.0); PLATELET COUNT, AUTOMATED 317 10^3/uL (150-450); RED BLOOD COUNT 4.43 10^6/uL (4.00-5.40); WHITE BLOOD COUNT 7.8 10^3/uL (4.0-10.0)
[2023-04-25 14:10] LABS: ALBUMIN 3.9 G/DL (3.2-5.2); ALKALINE PHOSPHATASE 64 U/L (46-116); ALT/SGPT 13 U/L (7.0-40); AST/SGOT 11 U/L (<34); BILIRUBIN,TOTAL 0.3 MG/DL (0.3-1.2); BLOOD UREA NITROGEN 13 MG/DL (9-23); CARBON DIOXIDE LEVEL 28 MMOL/L (20-31); CHLORIDE LEVEL 106 MMOL/L (98-107); CHOLESTEROL LEVEL 158 MG/DL (<200); CHOLESTEROL RISK RATIO 2.69 (<5); CREATININE FOR GFR 0.55 MG/DL (0.55-1.30); GLOMERULAR FILTRATION RATE > 60.0 (>60); GLUCOSE, FASTING 89 MG/DL (60-100); HDL CHOLESTEROL 58.6 MG/DL (>40); LDL CHOLESTEROL 90.2 MG/DL (<100); NON-HDL-C 99.4 MG/DL; POTASSIUM SERUM 4.4 MMOL/L (3.5-5.1); SODIUM LEVEL 141 MMOL/L (136-145); TOTAL PROTEIN 6.7 G/DL (5.7-8.2); TRIGLYCERIDES LEVEL 46 MG/DL (<150)
[2023-04-25 14:14] LABS: TOTAL 25(OH) VITAMIN D 34.6 NG/ML (20.0-100.0)
[2023-04-25 14:52] LABS: HEMOGLOBIN A1c 5.7 % (4.0-6.0)
== END ==
LOC: M PLALAB 09:48
PROVIDERS: ATTEND Family Medicine
DX: E11.9 Type 2 diabetes mellitus without complications (principal); E55.9 Vitamin D deficiency, unspecified